=== PATIENT | female | born 1970 ===

== ENCOUNTER 2018-03-21 10:08 | Outpatient (REF) | payer BC, SELFPAY ==
--- NOTE | 2018-03-21 08:00 | PAPFT_PTH ---
PATIENT: Eliane Andre LOC: [facility] U#:[id number] AGE/SX: 47/F ROOM: RE03/21/[address]: Judy Faye : 1970 BED: DIS: 03/21/2018 SPEC #: [id number] RECD: 03/22/18 13:12 STATUS: CASEY RERosmery #: [id number] ALLEY: 03/21/18 08:[address]: Judy Faye DEPT: [facility] Cytology RECD BY: Jacqui Yee Tissues: 1 - CX/ENDOCX FOR PAP SMEARS Procedures: PAP THIN PREP/[facility] Screening HPV DNA PROBE Comments: [id number]
== END 2018-03-21 10:28 ==
LOC: NCHCN 10:08
PROVIDERS: PCP Family Medicine; Visit Provider Family Medicine
DX: Z12.4 Encounter for screening for malignant neoplasm of cervix (principal); Z11.51 Encounter for screening for human papillomavirus (HPV); Z00.00 Encounter for general adult medical examination without abnormal findings
CPT/HCPCS: 88142; 87624

== ENCOUNTER 2019-07-29 11:04 | Outpatient (REF) | payer BC, SELFPAY ==
--- NOTE | 2019-07-29 08:45 | PAPFT_PTH ---
PATIENT: Eliane Andre [facility] U#:[id number] AGE/SX: 48/F ROOM: RE07/29/[address]: Judy Faye : 1970 BED: DIS: 07/29/2019 SPEC #: [id number] RECD: 07/30/19 12:50 STATUS: CASEY REQ #: [id number] ALLEY: 07/29/19 08:[address]: Judy Faye DEPT: [facility] Cytology RECD BY: Jacqui Yee Tissues: 1 - CX/ENDOCX FOR PAP SMEARS Procedures: PAP THIN PREP/[facility] Screening HPV DNA PROBE Comments: [id number]
== END 2019-07-29 11:24 ==
LOC: NCHCN 11:04
PROVIDERS: PCP Family Medicine; Visit Provider Family Medicine
DX: Z00.00 Encounter for general adult medical examination without abnormal findings (principal); Z12.4 Encounter for screening for malignant neoplasm of cervix; Z11.51 Encounter for screening for human papillomavirus (HPV)
CPT/HCPCS: 88142; 87624

== ENCOUNTER 2020-02-16 14:45 | Outpatient (REF) | payer BC, SELFPAY ==
[2020-02-19 11:24] LABS: SARS-CoV-2 Specimen Source Nasopharynx
[2020-02-19 14:19] LABS: SARS-CoV-2 RNA Undetected (Undetected)
== END 2020-02-16 15:05 ==
LOC: NCHCN 14:45
PROVIDERS: PCP Family Medicine; Visit Provider Family Medicine
DX: Z11.59 Encounter for screening for other viral diseases (principal)
CPT/HCPCS: U0003

== ENCOUNTER 2021-06-08 16:32 | Outpatient (REF) | payer BC, SELFPAY ==
[2021-06-08 21:45] LABS: HCT 40.8 % (36.0-46.0); HGB 13.4 g/dL (11.2-15.7); MCH 28.7 pg (27.0-33.0); MCHC 32.8 % (32.0-36.0); MCV 87.4 fL (80-95); MPV 10.8 fL (8.0-11.0); Platelet Count 264 10^3/uL (130-400); RBC 4.67 10^6/uL (3.93-5.22); RDW 12.3 % (11.7-14.6); RDW-SD 39.4 fL; WBC 6.92 10^3/uL (4.4-10.8)
[2021-06-08 22:07] LABS: Calculated LDL 105 mg/dL (<100); Cholesterol 196 mg/dL (<200); HDL Cholesterol 72 mg/dL (40-60); TSH (W/Ref FT4) 2.26 uIU/mL (0.36-3.74); Triglyceride 98 mg/dL (<150)
== END 2021-06-08 16:33 | disposition home or self-care (01) ==
LOC: NCHCN 16:32
PROVIDERS: PCP Family Medicine; Visit Provider Family Medicine
DX: R63.5 Abnormal weight gain (principal); Z13.220 Encounter for screening for lipoid disorders; Z00.00 Encounter for general adult medical examination without abnormal findings
CPT/HCPCS: 80061; 85027; 84443

== ENCOUNTER 2022-07-12 16:41 | Outpatient (REF) | payer BC, SELFPAY | END 2022-07-12 16:42 | disposition home or self-care (01) | LOC: NCHCN 16:41 | PROVIDERS: PCP Family Medicine; Visit Provider Family Medicine | DX: Z11.59 Encounter for screening for other viral diseases (principal); Z01.84 Encounter for antibody response examination | CPT/HCPCS: 86658 ==

== ENCOUNTER 2023-01-10 11:51 | Outpatient (REF) | payer BC, SELFPAY ==
[2023-01-10 21:17] LABS: Abs Immature Grans 0.03 10^3/uL (0.0-0.06); Absolute Basophil Count 0.03 10^3/uL (0.0-0.2); Absolute Eosinophil Count 0.19 10^3/uL (0.0-0.7); Absolute Lymphocyte Count 1.63 10^3/uL (1.2-3.4); Absolute Monocyte Count 0.36 10^3/uL (0.1-0.8); Absolute Neutrophil Count 5.18 10^3/uL (1.2-6.7); Basophils % 0.4; Eosinophils % 2.6; HCT 37.1 % (36.0-46.0); HGB 12.8 g/dL (11.2-15.7); Immature Grans % 0.4; MCH 30.3 pg (27.0-33.0); MCHC 34.5 % (32.0-36.0); MCV 88 fL (80-95); MPV 10.9 fL (8.0-11.0); Monocytes % 4.9; Neutrophils % 69.7; Platelet Count 229 10^3/uL (130-400); RBC 4.22 10^6/uL (3.93-5.22); RDW 12.5 % (11.7-14.6); RDW-SD 39.9 fL; WBC 7.42 10^3/uL (4.4-10.8)
[2023-01-10 21:22] LABS: ESR 2 mm/hr (0-30)
[2023-01-10 21:57] LABS: ALT 19 U/L (14-59); AST 14 U/L (15-37); Albumin 3.8 g/dL (3.4-5.0); Alkaline Phosphatase 65 U/L (46-116); Anion Gap 5.9 mmol/L (3-11); BUN 21 mg/dL (7-18); Bilirubin, Total 0.5 mg/dL (0.2-1.0); CO2 28.1 mmol/L (21.0-32.0); CREATININE 0.9 mg/dL (0.55-1.02); Chloride 104 mmol/L (98-107); Estimated GFR 76.44 (mL/min/1.73m2); Glucose 97 mg/dL (74-106); Potassium 4.2 mmol/L (3.5-5.1); Sodium 138 mmol/L (136-145); TSH 2.13 uIU/mL (0.36-3.74); Total Protein 6.7 g/dL (6.4-8.2); Vitamin B12 501 pg/mL (193-986)
[2023-01-12 11:34] LABS: Lyme Ab w Rflx to Lyme Confirm Negative (Negative)
[2023-01-12 14:56] LABS: ANA Interpretation Positive (Negative); ANA Titer Pattern 1:160 Homogeneous
[2023-01-14 14:19] LABS: Anaplasma phagocytophilum Negative (Negative); B. miyamotoi PCR Negative (Negative); Babesia divergens/MO-1 Negative (Negative); Babesia duncani Negative (Negative); Babesia microti Negative (Negative); Ehrlichia chaffeensis Negative (Negative); Ehrlichia ewingii/canis Negative (Negative); Ehrlichia muris eauclairensis Negative (Negative)
== END 2023-01-10 11:52 | disposition home or self-care (01) ==
LOC: NCHCN 11:51
PROVIDERS: PCP Family Medicine; Visit Provider Family Medicine
DX: R20.2 Paresthesia of skin (principal)
CPT/HCPCS: 80053; 85652; 87798; 82607; 84443; 85025; 86038; 86618

== ENCOUNTER 2024-08-05 16:14 | Outpatient (REF) | payer BC, SELFPAY ==
--- NOTE | 2024-08-05 13:30 | PAPFT_PTH ---
PATIENT: Eliane Andre LOC: [facility] U#:[id number] AGE/SX: 53/F ROOM: RE08/05/[address]: Judy Faye : 1970 BED: DIS: 08/05/2024 SPEC #: [id number] RECD: 08/06/24 13:01 STATUS: CASEY RERosmery #: [id number] ALLEY: 08/05/24 13:[address]: Judy Faye DEPT: [facility] Cytology RECD BY: Jacqui Yee Tissues: 1 - CX/ENDOCX FOR PAP SMEARS Procedures: PAP THIN PREP/[facility] Screening HPV DNA PROBE Comments: [id number] (HPV 16 & 18/45)
== END 2024-08-05 16:15 | disposition home or self-care (01) ==
LOC: NCHCN 16:14
PROVIDERS: PCP Family Medicine; Visit Provider Family Medicine
DX: R87.618 Other abnormal cytological findings on specimens from cervix uteri (principal)
CPT/HCPCS: 88142; 87624